=== PATIENT | male | born 1975 | race Two or more races ===

== ENCOUNTER 2022-05-26 08:21 | Emergency (ER) | payer OTHER ==
[~2022-05-26] VITALS: Ht 172.7 cm; Wt 90.3 kg
[2022-05-26] MEDS ORDERED: LOSARTAN POTASS25 MG PO (08:31)
== END 2022-05-26 11:46 | disposition home or self-care (01) ==
LOC: ER 08:21
DX: R07.89 Other chest pain (principal); F41.9 Anxiety disorder, unspecified

== ENCOUNTER → 2023-02-22 | Emergency (ER) | payer OTHER ==
[~2023-02-22] MED LIST: LOSARTAN POTASS25 MG PO
== END | disposition left against medical advice (07) ==
LOC: ER 10:45
DX: Z53.21 Procedure and treatment not carried out due to patient leaving prior to being seen by health care provider (principal)